=== PATIENT | female | born 1965 | race Caucasian/White ===

== ENCOUNTER 2016-02-21 01:42 | Emergency (ER) | payer OTHER ==
[2016-02-21] MEDS ORDERED: RABIES VACCINE 2.5 UNIT IM V ONE (03:26)
[2016-02-21] MEDS ORDERED: RABIES IMMUNE GLOBULIN 300 UNIT/2 ML IF ONE (03:30)
[2016-02-21] MEDS ORDERED: IBUPROFEN 800 MG TABLET ONE (04:37)
== END 2016-02-21 05:30 | disposition home or self-care (01) ==
LOC: ED 01:42
DX: S61.552A Open bite of left wrist, initial encounter (principal); W55.51XA Bitten by raccoon, initial encounter; Y93.89 Activity, other specified; Y92.007 Garden or yard of unspecified non-institutional (private) residence as the place of occurrence of the external cause
CPT/HCPCS: 90675; 90376; 90471 ×2; 99283 ×2; 12002 ×2; A9270